=== PATIENT | male | born 1995 | race Caucasian/White ===

== ENCOUNTER 2016-11-18 21:04 | Emergency (ER) | payer BC ==
--- NOTE | 2016-11-18 22:21 | DIAGNOSTIC IMAGING REPORT ---
PROCEDURE: XR CHEST 2 VIEW INDICATION: COUGH TECHNIQUE: PA and lateral views. COMPARISON: None. FINDINGS: Lungs are clear. Heart and mediastinum are normal. Thorax is normal. IMPRESSION: 1. Negative chest.
--- NOTE | 2016-11-18 23:07 | ED NURSING NOTES ---
Clinical Report - Nurses [facility] [place] [place] [address] 11/18/2016 21:06 Patient: NIRMAL MENENDEZ TRIAGE Triage time 21:Nov 18 2016. Acuity: LEVEL 4. Chief Complaint: CHEST PAIN and DISCOMFORT and (Patient having chest pain that "throbs" radiates to upper arm "once"). 21:18 11/18/16. SEPSIS SCREEN: Sepsis Screen. Negative (no infection suspected/documented). MORALES COMA SCORE: Morales Coma Scale: 15- eyes open spontaneously (4); best verbal response- oriented x 4 (5); best motor response- obeys commands (6). --21:18 Elli Carrero R.N. 21:12 11/18/16. BP: 149/89 (regular adult cuff) taken on the left arm, while sitting. HR: 111 (tachycardic). RR: 18. O2 saturation: 99% on room air. Temp: 98.5 F (oral). Pain level now: 5/10. Additional comments: With chest pain. --21:18 Elli Carrero R.N. Weight: 84.3 kg stated. Height/Length: 74 inches Per Patient. BMI: 23.9. --21:13 Elli Carrero R.N. Medications None. --21:13 Elli Carrero R.N. Allergies No Known Drug Allergy. --21:13 Elli Carrero R.N. History Arrived by private vehicle. Historian: patient. Accompanied by family. This started just prior to arrival. ( Patient admits to having anxiety, he drank last night for friends birthday and is hung over today, he vomited from being hung over he says). He has had difficulty breathing and vomiting. Reports experiencing sweating episodes. Treatment ELECTRICAL AUTOMATION ENGINEER: None. SOCIAL HX: Current every day heavy tobacco smoker- less than 1 pack per day. Alcohol use; consumes beer weekly. History of heavy drug use: marijuana. Recently used drugs today. No infectious disease exposure. ABUSE ASSESSMENT: No report of abuse. SELF HARM ASSESSMENT: A self harm assessment was performed. The patient answered "no" to the question "Do you have thoughts of harming or killing yourself?" and "Have you recently had thoughts about harming or killing others?". --21:18 Elli Carrero R.N. PROBLEMS: Anxiety Reaction. --21:14 Elli Carrero R.N. ADDITIONAL SURGERIES: Appendectomy. Knee Surgery. Tonsillectomy. --21:14 Elli Carrero R.N. Interventions ID band on patient. To treatment room. --21:18 Elli Carrero R.N. PHYSICAL ASSESSMENT 21:18 11/18/16. Ambulatory to room. Patient gowned. GENERAL / NEURO / PSYCH: Alert. Oriented X 4. Appears anxious. HEENT: Mucous membranes are pink. RESPIRATORY: Respirations not labored. Chest nontender. Breath sounds within normal limits. CVS: Normal sinus rhythm noted. Heart sounds within normal limits. Pulses within normal limits. Capillary refill less than 2 seconds. GI / : Abdomen soft and nontender. EXTREMITIES: No lower extremity edema. SKIN: Skin is warm and dry. Normal skin turgor. Skin is non-tender. --21:18 Elli Carrero R.N. NURSING PROGRESS NOTES 21:11/18/16. The plan of care for this patient has been created. Monitoring of patient in place. Patient gowned. Head of bed elevated. Reassurance given. Two patient identifiers checked. Call light placed in reach. Side rails up x 1. Bed placed in lowest position. Brakes of bed on. Patient ready for evaluation- chart flagged and ED physician notified. --21:19 Elli Carrero R.N. 21:19 11/18/16. ( Patient was on some sort of ABO for cuts on fingers, last dose was approximately 4 days ago). --21:19 Elli Carrero R.N. Patient walked to radiology with tech. (21:19 Nov 18 2016). --21:19 Elli Carrero R.N. EKG time: (2112). EKG was ordered, performed by a tech and shown to the ED physician. --21:23 Néstor Mary, ER Human Resources Benefits Administrator 21:33 11/18/16. ( Dr Roth in with patient). --21:33 Elli Carrero R.N. 21:48 11/18/2016 Site #1 started via IV in the right antecubital space with an 20g angiocath, with aseptic technique and good blood return; one attempt. Blood drawn: rainbow set. Labeled in the presence of the patient and sent to the lab. Saline lock flushed with 10 mL saline. --21:53 Elli Carrero R.N. 21:53 11/18/2016 Started bag #1 1000 mL IV Fluids IV NS (Saline); bolus of 1000 mL over 1 hour(s) then at 1000 mL/hr over 1 hour(s) via site #1 via IV pump. Allergies verified and confirmed 5 rights. IV patency established. IV site checked: no pain, redness, or swelling. IV flushed thoroughly pre- and post-medication administration. --21:53 Elli Carrero R.N. ( Physician done with patient, IV started, labs drawn, and Fluids running). --21:54 Elli Carrero R.N. 21:54 11/18/16. BP: 149/74 (regular adult cuff) taken on the left arm, while sitting. HR: 82. RR: 18. O2 saturation: 98% on room air. Pain level now: 5/10. --21:58 Elli Carrero R.N. 22:36 11/18/16. BP: 123/47 (regular adult cuff) taken on the left arm. HR: 86. RR: 16. O2 saturation: 99%. Pain level now: 0/10. --22:37 Elli Carrero R.N. ( Patient requesting more water, this was given, mother at patients bedside). --22:37 Elli Carrero R.N. ( Patient up to restroom). --22:40 Elli Carrero R.N. 23:13 11/18/2016 Potassium Chloride (Potassium Chloride ER) PO Tablets 60 meq given. Allergies verified and confirmed 5 rights. --23:13 Elli Carrero R.N. 23:21 11/18/2016 IV Fluids IV NS Discontinued: bag #1 completed upon discharge. Total amount infused: 1000 mL. IV patency established. IV site checked: no pain, redness, or swelling. IV flushed thoroughly. --23:21 Elli Carrero R.N. 21:45 11/18/16. BP: 138/76 (regular adult cuff) taken on the left arm, while sitting. HR: 97. RR: 14. O2 saturation: 98% on room air. Pain level now: 0/10. --02:52 Elli Carrero R.N. 22:00 11/18/16. HR: 92. RR: 18. O2 saturation: 98% on room air. Pain level now: 0/10. --02:53 Elli Carrero R.N. DISPOSITION / DISCHARGE 23:20 11/18/2016 Site #1 removed upon discharge. Bandaid applied. --23:20 Elli Carrero R.N. 23:21 11/18/16. Condition at departure: improved. No learning barriers present. Discharge instructions provided and reviewed with the patient. Reviewed diet (potassium). Work note given. Patient verbalized understanding. Written instructions provided in Macedonian. The patient was discharged by the physician. He was discharged home and accompanied by parent. He left the Emergency Department ambulatory and via private vehicle. Parent driving. --23:21 Elli Carrero R.N. 23:13 11/18/16. BP: 122/63 (regular adult cuff) taken on the left arm, while sitting. HR: 79. RR: 18. O2 saturation: 98% on room air. Temp: 98.4 F (oral). Pain level now: 0/10. --23:21 Elli Carrero R.N. Departure time: 23:Nov 18 2016. --23:22 Elli Carrero R.N. Locked/Released at 11/19/2016 3:36 by Elli Carrero R.N.
--- NOTE | 2016-11-18 23:07 | ED CLINICAL REPORT ---
Clinical Report - Physicians/Mid Levels [facility] [address] [place] [place], [place] [address] 11/18/2016 21:06 Patient: NIRMAL MENENDEZ Time Seen: 2119. Arrived- By private vehicle. Historian- patient. HISTORY OF PRESENT ILLNESS Chief Complaint: CHEST PAIN. It is described as sharp and it is described as located in the left chest area. No radiation. 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 It was abrupt in onset and has been constant but is not gone now. Onset during rest. At its maximum, severity described as moderate. When seen in the E.D., severity described as moderate. Modifying factors- (better with excursion. does not know what makes it worse.). No nausea, vomiting or diaphoresis. (states he was hung over this morning. +n/v of food stuffs. no blood. reports tingling in the toes and finger tips. no hx of coughing up blood, clotting problem, recent trauma/surgery, or hormone replacement.). He has had difficulty breathing. No additional chest pain. Similar symptoms previously: None. Recent medical care: Not recently seen/assessed. REVIEW OF SYSTEMS No pedal edema, calf pain or skin rash. All systems otherwise negative, except as recorded above. PAST HISTORY See nurses notes. Denies the following risk factors for DVT/PE - history of DVT and pulmonary embolism, recent surgery, recent [facility] and cancer. Denies the following risk factors for DVT/PE - clotting disorder, estrogens, obesity, immobility and advanced in age. Denies the following risk factors for DVT/PE - vena cava filter. SOCIAL HISTORY Smoker- current status unknown. Alcohol use. No drug use. No recent travel. Is a local resident. ADDITIONAL NOTES The nursing notes have been reviewed. PHYSICAL EXAM Vital Signs: 11/18/2016 21:12 BP: 149/89. HR: 111. RR: 18. O2 saturation: 99%. Temp: 98.5 F. Pain level now: 5/10. Oxygen saturation normal. Appearance: Alert. Oriented X3. No acute distress. Eyes: Pupils equal, round and reactive to light. Eyes normal inspection. ENT: Ears normal. Nose normal. Pharynx normal. Neck: Normal inspection. Neck supple. CVS: Normal heart rate and rhythm. Heart sounds normal. Pulses normal. Respiratory: No respiratory distress. Breath sounds normal. Chest nontender. No rales, rhonchi or wheezes. Abdomen: Soft and nontender. Bowel sounds normal. Skin: Skin warm and dry. Normal skin color. No rash. Normal skin turgor. Extremities: Extremities exhibit normal ROM. No lower extremity edema. Neuro: Oriented X 3. No motor deficit. No sensory deficit. LABS, X-RAYS, AND EKG EKG: Regular narrow-complex tachycardia (117). Sinus tachycardia. Normal P waves. Normal JANAE. Normal QRS complex. Normal axis. Normal ST and T waves, QT and QTc. The study has been interpreted contemporaneously. The study has been independently viewed by me. The EKG appears to be a good tracing. Chest X-ray: Normal Chest X-Ray. Laboratory Tests: CBC w Diff: ([place]: 11/18/2016 21:50) ( [facility] 11/18/2016 22:07) Final results Test Result Flag Units (Reference) WHITE BLOOD COUNT 12.1 H K/uL (4.5-11.5) RED BLOOD COUNT 5.34 M/uL (4.50-5.90) HEMOGLOBIN 15.6 gm/dL (13.5-17.5) HEMATOCRIT 45.0 % (41.0-53.0) MEAN CELL VOLUME 84 fL (80-100) MEAN CORPUSCULAR HGB 29 pg (26-34) MEAN CORPUSCULAR HGB CONC 35 g/dL (31-37) RED CELL DISTRIBUTION WIDTH 12.6 % (11.6-14.8) PLATELET COUNT 220 K/uL (150-400) NEUTROPHIL % 57.8 % (50-75) LYMPH % 32.3 % (25-40) MONO % 7.2 % (3-14) EOSINOPHIL % 1.9 % (0-4) BASOPHIL % 0.8 % (0-2) CMP: ([facility]: 11/18/2016 21:50) ( [facility] 11/18/2016 22:34) Final results Test Result Flag Units (Reference) GLUCOSE 140 H mg/dL (70-110) BUN 14 mg/dL (7-18) CREATININE 1.0 mg/dL (0.6-1.3) Estimated GFR >60 mL/min Estimated GFR- >60 mL/min Note: Persistent reduction over 3 months in eGFR<60 mL/min/1.73 m2 defines CKD. Patients with eGFR values>=60 mL/min/1.73 m2 may also have CKD if evidence ofpersistent proteinuria. Additional information may be foundat www.kidney.org. SODIUM 141 mmol/L (136-145) POTASSIUM 3.2 L mmol/L (3.5-5.1) CHLORIDE 103 mmol/L (98-107) CARBON DIOXIDE 28 mmol/L (21-32) CALCIUM 8.4 L mg/dL (8.5-10.1) TOTAL PROTEIN 6.8 g/dL (6.4-8.2) ALBUMIN 4.0 g/dL (3.3-5.0) BILIRUBIN, TOTAL 0.6 mg/dL (0.0-1.0) ALKALINE PHOSPHATASE 84 U/L (46-116) AST (SGOT) 22 U/L (15-37) ALT (SGPT) 33 U/L (12-78) LIPASE 108 U/L (73-393) . PROGRESS AND PROCEDURES Course of Care: the patient is a 21-year-old male presenting for evaluation ofchest pain. Patient without any significant risk factors for cardiac abnormality. Patient will be evaluated with chest x-ray and EKG Because of the patient's recent alcohol consumption and being "hung over this morning. "Also be evaluating for any metabolic or electrolyte disturbances from the alcohol consumption including pancreatitis Or alcoholic hepatitis. Patient is agreeable to the treatment plan. IV fluids have been ordered because the patient's tachycardia. The patient's workup was remarkable for the findings above. Patient with hypokalemia without any EKG changes of hypokalemia. Patient also noted to have significant improvement with IV hydration. Because the patient significant improvement with IV hydration andno other acute abnormalities noted on patient's workup for chest pain, do not feel patient requires admission to the hospital or further emergency department workup/evaluation. Patient is a stable outpatient candidate. Expressed my concerns with his alcohol consumption. discussed with the patient and the patient's mother who is at that side per patient's request there diagnosis here in the emergency department including home care, follow-up, and return precautthe patient expressed understanding of these instructions and was agreeable to them. Disposition: Discharged. Condition: good. CLINICAL IMPRESSION Chest pain characterized as "discomfort" .12 lead EKG performed. (acute). 11/18/2016 22:36 BP: 123/47. HR: 86. RR: 16. O2 saturation: 99%. Pain level now: 0/10. Blood pressure normal. Oxygen saturation normal. Mild dehydration (acute). Hypokalemia (acute). INSTRUCTIONS Warnings: GENERAL WARNINGS: Return or contact your physician immediately if your condition worsens or changes unexpectedly, if not improving as expected, or if other problems arise. SPECIFICALLY, return if you develop chest, neck, jaw, shoulder, arm, or back pain, difficulty breathing, a fluttering sensation in your chest, lightheadedness, fainting, excessive fatigue, or sudden sweating. Your Current Medications: CONTINUE TAKING THE FOLLOWING MEDICATIONS: None*. Follow-up: Return to the emergency department as needed. Follow up with your doctor in three days. Reason for referral: recheck today's concerns. Summary of care provided to patient via paper. Screening today revealed the patient's blood pressure to be in the normal range. The patient should follow up with a primary care provider for blood pressure management. Understanding of the discharge instructions verbalized by patient. (Electronically signed by Ryan Roth Dr. 11/19/2016 8:19)
--- NOTE | 2016-11-18 23:07 | ED CLINICAL REPORT ---
Clinical Report - Physicians/Mid Levels [facility] [address] [place] [address] 11/18/2016 21:06 Patient: NIRMAL MENENDEZ Time Seen: 2119. Arrived- By private vehicle. Historian- patient. HISTORY OF PRESENT ILLNESS Chief Complaint: CHEST PAIN. It is described as sharp and it is described as located in the left chest area. No radiation. 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 It was abrupt in onset and has been constant but is not gone now. Onset during rest. At its maximum, severity described as moderate. When seen in the E.D., severity described as moderate. Modifying factors- (better with excursion. does not know what makes it worse.). No nausea, vomiting or diaphoresis. (states he was hung over this morning. +n/v of food stuffs. no blood. reports tingling in the toes and finger tips. no hx of coughing up blood, clotting problem, recent trauma/surgery, or hormone replacement.). He has had difficulty breathing. No additional chest pain. Similar symptoms previously: None. Recent medical care: Not recently seen/assessed. REVIEW OF SYSTEMS No pedal edema, calf pain or skin rash. All systems otherwise negative, except as recorded above. PAST HISTORY See nurses notes. Denies the following risk factors for DVT/PE - history of DVT and pulmonary embolism, recent surgery, recent ID and cancer. Denies the following risk factors for DVT/PE - clotting disorder, estrogens, obesity, immobility and advanced in age. Denies the following risk factors for DVT/PE - vena cava filter. SOCIAL HISTORY Smoker- current status unknown. Alcohol use. No drug use. No recent travel. Is a local resident. ADDITIONAL NOTES The nursing notes have been reviewed. PHYSICAL EXAM Vital Signs: 11/18/2016 21:12 BP: 149/89. HR: 111. RR: 18. O2 saturation: 99%. Temp: 98.5 F. Pain level now: 5/10. Oxygen saturation normal. Appearance: Alert. Oriented X3. No acute distress. Eyes: Pupils equal, round and reactive to light. Eyes normal inspection. ENT: Ears normal. Nose normal. Pharynx normal. Neck: Normal inspection. Neck supple. CVS: Normal heart rate and rhythm. Heart sounds normal. Pulses normal. Respiratory: No respiratory distress. Breath sounds normal. Chest nontender. No rales, rhonchi or wheezes. Abdomen: Soft and nontender. Bowel sounds normal. Skin: Skin warm and dry. Normal skin color. No rash. Normal skin turgor. Extremities: Extremities exhibit normal ROM. No lower extremity edema. Neuro: Oriented X 3. No motor deficit. No sensory deficit. LABS, X-RAYS, AND EKG EKG: Regular narrow-complex tachycardia (117). Sinus tachycardia. Normal P waves. Normal JNAAE. Normal QRS complex. Normal axis. Normal ST and T waves, QT and QTc. The study has been interpreted contemporaneously. The study has been independently viewed by me. The EKG appears to be a good tracing. Chest X-ray: Normal Chest X-Ray. Laboratory Tests: CBC w Diff: ([place]: 11/18/2016 21:50) ( [facility] 11/18/2016 22:07) Final results Test Result Flag Units (Reference) WHITE BLOOD COUNT 12.1 H K/uL (4.5-11.5) RED BLOOD COUNT 5.34 M/uL (4.50-5.90) HEMOGLOBIN 15.6 gm/dL (13.5-17.5) HEMATOCRIT 45.0 % (41.0-53.0) MEAN CELL VOLUME 84 fL (80-100) MEAN CORPUSCULAR HGB 29 pg (26-34) MEAN CORPUSCULAR HGB CONC 35 g/dL (31-37) RED CELL DISTRIBUTION WIDTH 12.6 % (11.6-14.8) PLATELET COUNT 220 K/uL (150-400) NEUTROPHIL % 57.8 % (50-75) LYMPH % 32.3 % (25-40) MONO % 7.2 % (3-14) EOSINOPHIL % 1.9 % (0-4) BASOPHIL % 0.8 % (0-2) CMP: ([place]: 11/18/2016 21:50) ( [facility] 11/18/2016 22:34) Final results Test Result Flag Units (Reference) GLUCOSE 140 H mg/dL (70-110) BUN 14 mg/dL (7-18) CREATININE 1.0 mg/dL (0.6-1.3) Estimated GFR >60 mL/min Estimated GFR- >60 mL/min Note: Persistent reduction over 3 months in eGFR<60 mL/min/1.73 m2 defines CKD. Patients with eGFR values>=60 mL/min/1.73 m2 may also have CKD if evidence ofpersistent proteinuria. Additional information may be foundat [email or web address].org. SODIUM 141 mmol/L (136-145) POTASSIUM 3.2 L mmol/L (3.5-5.1) CHLORIDE 103 mmol/L (98-107) CARBON DIOXIDE 28 mmol/L (21-32) CALCIUM 8.4 L mg/dL (8.5-10.1) TOTAL PROTEIN 6.8 g/dL (6.4-8.2) ALBUMIN 4.0 g/dL (3.3-5.0) BILIRUBIN, TOTAL 0.6 mg/dL (0.0-1.0) ALKALINE PHOSPHATASE 84 U/L (46-116) AST (SGOT) 22 U/L (15-37) ALT (SGPT) 33 U/L (12-78) LIPASE 108 U/L (73-393) . PROGRESS AND PROCEDURES Course of Care: the patient is a 21-year-old male presenting for evaluation ofchest pain. Patient without any significant risk factors for cardiac abnormality. Patient will be evaluated with chest x-ray and EKG Because of the patient's recent alcohol consumption and being "hung over this morning. "Also be evaluating for any metabolic or electrolyte disturbances from the alcohol consumption including pancreatitis Or alcoholic hepatitis. Patient is agreeable to the treatment plan. IV fluids have been ordered because the patient's tachycardia. The patient's workup was remarkable for the findings above. Patient with hypokalemia without any EKG changes of hypokalemia. Patient also noted to have significant improvement with IV hydration. Because the patient significant improvement with IV hydration andno other acute abnormalities noted on patient's workup for chest pain, do not feel patient requires admission to the hospital or further emergency department workup/evaluation. Patient is a stable outpatient candidate. Expressed my concerns with his alcohol consumption. discussed with the patient and the patient's mother who is at that side per patient's request there diagnosis here in the emergency department including home care, follow-up, and return precautthe patient expressed understanding of these instructions and was agreeable to them. Disposition: Discharged. Condition: good. CLINICAL IMPRESSION Chest pain characterized as "discomfort" .12 lead EKG performed. (acute). 11/18/2016 22:36 BP: 123/47. HR: 86. RR: 16. O2 saturation: 99%. Pain level now: 0/10. Blood pressure normal. Oxygen saturation normal. Mild dehydration (acute). Hypokalemia (acute). INSTRUCTIONS Warnings: GENERAL WARNINGS: Return or contact your physician immediately if your condition worsens or changes unexpectedly, if not improving as expected, or if other problems arise. SPECIFICALLY, return if you develop chest, neck, jaw, shoulder, arm, or back pain, difficulty breathing, a fluttering sensation in your chest, lightheadedness, fainting, excessive fatigue, or sudden sweating. Your Current Medications: CONTINUE TAKING THE FOLLOWING MEDICATIONS: None*. Follow-up: Return to the emergency department as needed. Follow up with your doctor in three days. Reason for referral: recheck today's concerns. Summary of care provided to patient via paper. Screening today revealed the patient's blood pressure to be in the normal range. The patient should follow up with a primary care provider for blood pressure management. Understanding of the discharge instructions verbalized by patient. (Electronically signed by Ryan Roth Dr. 11/19/2016 8:19)
--- NOTE | 2016-11-18 23:07 | ED ORDER SUMMARY ---
..... Patient: NIRMAL MENENDEZ OrderSheet [facility] VisitID: [id number] [place] [address] [place] [address] 21y, M Registration Date/Time: 11/18/2016 ORDER SHEET Weight: 84.3 kg (stated) Allergies: No Known Drug Allergy GENERAL ORDERS: Chest 2V Urgent (21:16 11/18/2016 Candi Riley) (21:22 MCampbell) Qi Specialist (Continuous) (CP) (21:16 11/18/2016 Candi Riley) (Ack 21:20 JSanders R.N.) (21:25 JSanders R.N.) Pulse oximeter (21:16 11/18/2016 Candi Riley) (21:20 JSanders R.N.) EKG - ER Stat (21:23 11/18/2016 [employer] ER Paste Mixing Supervisor per protocol) (21:23 [employer] ER Paste Mixing Supervisor) CBC w Diff Urgent (21:38 11/18/2016 Candi Riley) (Ack 21:47 LMuller) (21:53 JSanders R.N.) CMP Urgent (21:38 11/18/2016 Candi Riley) (Ack 21:47 LMuller) (21:53 JSanders R.N.) Lipase Urgent (21:38 11/18/2016 Candi Riley) (Ack 21:47 LMuller) (21:53 JSanders R.N.) MEDICATION ORDERS: Potassium Chloride PO 60 meq (NOW) (23:04 11/18/2016 Candi Riley) (Ack 23:10 JSanders R.N.) (23:13 JSanders R.N.) IV FLUIDS: IV NS : initial bolus 1000 mL (1000 mL/hr), then none - for X1 (NOW) (21:37 11/18/2016 Candi Riley) (21:53 JSanders R.N.) ORDER SHEET NOTES: [Electronically signed by Elli Carrero R.N. (03:36 11/19/2016)] [Electronically signed by Ryan Roth Dr. (08:19 11/19/2016)] [Electronically locked/signed by Elli Carrero R.N. (03:36 11/19/2016)]
--- NOTE | 2016-11-18 23:07 | ED ORDER SUMMARY ---
..... Patient: NIRMAL MENENDEZ OrderSheet [facility] VisitID: [id number] [place] [place] [address] 21y, M Registration Date/Time: 11/18/2016 ORDER SHEET Weight: 84.3 kg (stated) Allergies: No Known Drug Allergy GENERAL ORDERS: Chest 2V Urgent (21:16 11/18/2016 Candi Riley) (21:22 MCampbell) Bi Tri Operator (Continuous) (CP) (21:16 11/18/2016 Candi Riley) (Ack 21:20 JSanders R.N.) (21:25 JSanders R.N.) Pulse oximeter (21:16 11/18/2016 Candi Riley) (21:20 JSanders R.N.) EKG - ER Stat (21:23 11/18/2016 [employer] ER Ecological Modeler per protocol) (21:23 [employer] ER Ecological Modeler) CBC w Diff Urgent (21:38 11/18/2016 Candi Riley) (Ack 21:47 LMuller) (21:53 JSanders R.N.) CMP Urgent (21:38 11/18/2016 Candi Riley) (Ack 21:47 LMuller) (21:53 JSanders R.N.) Lipase Urgent (21:38 11/18/2016 Candi Riley) (Ack 21:47 LMuller) (21:53 JSanders R.N.) MEDICATION ORDERS: Potassium Chloride PO 60 meq (NOW) (23:04 11/18/2016 Candi Riley) (Ack 23:10 JSanders R.N.) (23:13 JSanders R.N.) IV FLUIDS: IV NS : initial bolus 1000 mL (1000 mL/hr), then none - for X1 (NOW) (21:37 11/18/2016 Candi Riley) (21:53 JSanders R.N.) ORDER SHEET NOTES: [Electronically signed by Elli Carrero R.N. (03:36 11/19/2016)] [Electronically signed by Ryan Roth Dr. (08:19 11/19/2016)] [Electronically locked/signed by Elli Carrero R.N. (03:36 11/19/2016)]
--- NOTE | 2016-11-19 08:19 | ED MAR SUMMARY ---
..... Medication Administration Record [facility] [address] [place] [address] Patient: NIRMAL MENENDEZ Visit ID: [id number] 21y, M Weight: 84.3 kg Height/Length: 74 in BMI: 23.9 ALLERGIES: No Known Drug Allergy Start 21:53 11/18/2016 Elli Carrero R.N., Stop 23:21 11/18/2016 Elli Carrero R.N. Medication Administered: IV NS (SALINE), Dose: IV Fluids over 1 hour(s), Rate: 1000 mL/hr, Bolus: 1000 mL over 1 hour(s), Dispensed: 1000 mL bag, Site: #1 right . Medication Ordered: IV NS : initial bolus 1000 mL (1000 mL/hr), then none - for X1 (NOW). Given 23:13 11/18/2016 Elli Carrero R.N. Medication Administered: POTASSIUM CHLORIDE [PO] (POTASSIUM CHLORIDE ER), Dose: 60 meq Tablets PO. Medication Ordered: Potassium Chloride PO 60 meq (NOW).
--- NOTE | 2016-11-19 08:19 | ED MAR SUMMARY ---
..... Medication Administration Record Merg[facility] With [facility] [address] [place] [address] Patient: NIRMAL MENENDEZ Visit ID: [id number] 21y, M Weight: 84.3 kg Height/Length: 74 in BMI: 23.9 ALLERGIES: No Known Drug Allergy Start 21:53 11/18/2016 Elli Carrero R.N., Stop 23:21 11/18/2016 Elli Carrero R.N. Medication Administered: IV NS (SALINE), Dose: IV Fluids over 1 hour(s), Rate: 1000 mL/hr, Bolus: 1000 mL over 1 hour(s), Dispensed: 1000 mL bag, Site: #1 right . Medication Ordered: IV NS : initial bolus 1000 mL (1000 mL/hr), then none - for X1 (NOW). Given 23:13 11/18/2016 Elli Carrero R.N. Medication Administered: POTASSIUM CHLORIDE [PO] (POTASSIUM CHLORIDE ER), Dose: 60 meq Tablets PO. Medication Ordered: Potassium Chloride PO 60 meq (NOW).
--- NOTE | 2016-11-19 08:19 | ED MED RECONCILIATION SUMMARY ---
Patient: NIRMAL MENENDEZ Medication Reconciliation Report [facility] VisitID: [id number] [address] [place] [address] 21y, M Registration Date/Time: 11/18/2016 Weight: 84.3 kg Height/Length: 74 in. BMI: 23.9 ALLERGIES: No Known Drug Allergy The patient's Home Medications are listed below: NONE. The source(s) of the original Home Medication information: Not obtained. The following Medications were given to the patient in the Emergency Department: IV NS IV Fluids bolus 1000 mL over 1 hour(s), then 1000 mL/hr, administered: 11/18/2016 9:53:00 PM Potassium Chloride [PO] PO 60 meq, administered: 11/18/2016 11:13:00 PM The following Medications were prescribed to the patient: None.
--- NOTE | 2016-11-19 08:19 | ED DISCHARGE INSTRUCTIONS ---
Patient: NIRMAL MENENDEZ General Instructions [facility] VisitID: [id number] [address] [place] [address] 21y, M Registration Date/Time: 11/18/2016 Chest pain characterized as "discomfort" .12 lead EKG performed. (acute). 11/18/2016 22:36 BP: 123/47. HR: 86. RR: 16. O2 saturation: 99%. Pain level now: 0/10. Blood pressure normal. Oxygen saturation normal. Mild dehydration (acute). Hypokalemia (acute). INSTRUCTIONS Warnings: GENERAL WARNINGS: Return or contact your physician immediately if your condition worsens or changes unexpectedly, if not improving as expected, or if other problems arise. SPECIFICALLY, return if you develop chest, neck, jaw, shoulder, arm, or back pain, difficulty breathing, a fluttering sensation in your chest, lightheadedness, fainting, excessive fatigue, or sudden sweating. Your Current Medications: CONTINUE TAKING THE FOLLOWING MEDICATIONS: None*. Follow-up: Return to the emergency department as needed. Follow up with your doctor in three days. Reason for referral: recheck today's concerns. Summary of care provided to patient via paper. Screening today revealed the patient's blood pressure to be in the normal range. The patient should follow up with a primary care provider for blood pressure management. Understanding of the discharge instructions verbalized by patient. ADDITIONAL INFORMATION Chest Pain, Uncertain Cause Chest pain can happen for a number of reasons. Sometimes the cause can not be determined. If yourcondition does not seem serious, and your pain does not appear to be coming from your heart, your doctor may recommend watching it closely. Sometimes the signs of a serious problem take more time to appear. Therefore, watch for the warning signs listed below. Home care After your visit, follow these recommendations: Rest today and avoid strenuous activity. Take any prescribed medicine as directed. Follow-up care Follow up with your doctor or this facility as instructed or if you do not start to feel better within 24 hours. Call 911 Get immediate medical attention if any of the following occur: A change in the type of pain: if it feels different, becomes more severe, lasts longer, or begins to spread into your shoulder, arm, neck, jaw or back Shortness of breath or increased pain with breathing Weakness, dizziness, or fainting Rapid heart beat Get prompt medical attention Call your doctor right away if any of the following occur: Cough with dark colored sputum (phlegm) or blood Fever of 100.4F(38C) or higher, or as directed by your health care provider Swelling, pain or redness in one leg Dehydration (Adult) Dehydration occurs when your body loses too much fluid. This may be the result of vomiting a lot or from diarrhea,sweating a lot, or a high fever. It may also happen if you dont drink enough fluid when youre sick. Misuse of diuretics (water pills) can also be a cause. Symptoms include thirst and feeling dizzy, weak, fatigued, or very drowsy. The diet described below is usually enough to treat most cases. Sometimes you may needmedicine. Home Care Follow these guidelines for home care: Drink at least 12 8-ounce glasses of fluid every day to overcome the dehydration. Fluid may include water; orange juice; lemonade; apple, grape, and cranberry juice; clear fruit drinks; electrolyte replacement and sports drinks; and teas and coffee without caffeine. If you have been diagnosed with a kidney disease, ask your doctor how much and what types of fluids you should drink to prevent dehydration. If you have kidney disease, drinking too much fluid can cause it build up in the your body and be dangerous to your health. If you have fever, muscle aching, or headache from a viral syndrome, you may useacetaminophen or ibuprofen, unless another medicine was prescribed for this.If you have chronic liver or kidney disease or ever had a stomach ulcer or GI bleeding, talk with your doctor before using these medicines. Don't take aspirin if you are younger than 18 and are ill with a fever.Aspirin raises the chance forsevere liver injury. Follow-up care Follow up with your health care provider if you don't get better in the next 24 to 48 hours. When to seek medical care Get prompt medical attention if any of theseoccur: Continued vomiting (cant keep liquids down) Frequent diarrhea (more than 5 times a day); blood (red or black color) or mucus in diarrhea Blood in vomit or stool Swollen abdomen or increasing abdominal pain Weakness, dizziness, or fainting Unusually drowsy or confused Reduced urine output or extreme thirst Fever of 100.4 F (38 C) oral or higher that does not get better with fever medication Hypokalemia Hypokalemia means a low level of potassium in the blood. This most often occurs in patients who take diuretics (water pills). It can also occur due to severe vomiting or diarrhea. A mild case usually causes no symptoms. It is only found with blood testing. More severe potassium loss causes generalized weakness, muscle or abdominal cramping, heart palpitations (rapid or irregular heartbeats) and low blood pressure. Home Care: 1) Take any potassium supplements prescribed. 2) Eat foods rich in potassium. The highest amount is found in artichoke, baked potatoes, spinach, cantaloupe, honeydew melon, cod, halibut, salmon, and scallops. White, red, or adkins beans are also very good sources. A modest amount is found in orange juice, bananas, carrots, and tomato juice. 3) Certain types of diuretics (water pills), such as Lasix (furosemide), require that you take potassium supplements for as long as you take the diuretic pills. If you are taking a diuretic, discuss the need for potassium supplements with your doctor. Follow Up with your doctor for a repeat blood test within the next week or as advised by our staff. Get Prompt Medical Attention if any of the following occur: -- Increased weakness -- Feeling dizzy -- Irregular heartbeat, extra beats or very fast heart rate -- Fainting spell You have been given the following additional information: Chest Pain, Uncertain Cause Dehydration (Adult) Hypokalemia (Electronically signed by Ryan Roth Dr. 11/19/2016 8:19)
--- NOTE | 2016-11-19 08:19 | ED MED RECONCILIATION SUMMARY ---
Patient: NIRMAL MENENDEZ Medication Reconciliation Report [facility] VisitID: [id number] [address] [place] [address] 21y, M Registration Date/Time: 11/18/2016 Weight: 84.3 kg Height/Length: 74 in. BMI: 23.9 ALLERGIES: No Known Drug Allergy The patient's Home Medications are listed below: NONE. The source(s) of the original Home Medication information: Not obtained. The following Medications were given to the patient in the Emergency Department: IV NS IV Fluids bolus 1000 mL over 1 hour(s), then 1000 mL/hr, administered: 11/18/2016 9:53:00 PM Potassium Chloride [PO] PO 60 meq, administered: 11/18/2016 11:13:00 PM The following Medications were prescribed to the patient: None.
== END 2016-11-18 23:23 | disposition home or self-care (01) ==
LOC: ED SRH 21:04
DX: E86.0 Dehydration (principal); E87.6 Hypokalemia; R07.89 Other chest pain; F17.210 Nicotine dependence, cigarettes, uncomplicated
CPT/HCPCS: 90100; 92235; 95059